=== PATIENT | male | born 1980 | race African-American/Black ===

== ENCOUNTER 2018-10-10 14:17 | Emergency (ER) | payer SELFPAY ==
[~2018-10-10] VITALS: Ht 180.3 cm; Wt 70.0 kg
[2018-10-10 16:00] VITALS: BP 120/77
== END 2018-10-10 16:01 | disposition home or self-care (01) ==
LOC: ER 14:17
DX: M79.601 Pain in right arm (principal); M25.541 Pain in joints of right hand; F12.10 Cannabis abuse, uncomplicated
CPT/HCPCS: 99283